=== PATIENT | female | born 1935 | race Caucasian/White ===

== ENCOUNTER → 2016-12-13 | Outpatient (CLI) | payer OTHER, MEDICARE ==
--- NOTE | 2016-12-13 14:53 | MA ---
Screening Digital Mammogram With Tomosynthesis and iCAD Indication: Routine screening. Technique: Standard digital CC projections were obtained. Digital breast tomosynthesis was performed in the MLO projection with reconstruction at 1.0-mm slice thickness. Composite MLO views were recons tructed. This examination was processed by the iCAD computer-aided detection system. Comparison: December 2015, December 2014, November 2013, August 2012, and August 2011. Breast density: Type B. Findings: CAD was reviewed. No suspicious microcalcifications, mass, or architectural distortion. Impression: Negative mammogram BI-RADS 1: Negative Recommendation: Routine screening is recommended in one year. [facility] will send a result letter to the patient. Negative mammography should not preclude additional workup of a clinically suspicious finding. The patient's information is entered into a reminder system with a target due date for her next mammo gram.
== END ==
LOC: FIMAGING 11:06
DX: Z12.31 Encounter for screening mammogram for malignant neoplasm of breast (principal)
CPT/HCPCS: G0202

== ENCOUNTER → 2017-01-04 | Outpatient (CLI) | payer OTHER, MEDICARE | LOC: BHFA 14:45 | PROVIDERS: ATTEND Internal Medicine | DX: I10 Essential (primary) hypertension (principal) ==

== ENCOUNTER → 2017-03-02 | Outpatient (CLI) | payer OTHER, MEDICARE | LOC: FIMAGING 11:56 | PROVIDERS: ATTEND Registered Nurse | DX: N93.9 Abnormal uterine and vaginal bleeding, unspecified (principal) ==

== ENCOUNTER → 2017-09-19 | Outpatient (CLI) | payer OTHER, MEDICARE ==
[~2017-09-19] MED LIST: DEPO METHYLPREDNISOLONE 40 MG/ML SDV ONE; IOPAMIDOL (ISOVUE 370) 100 ML BTL IV ONE; LIDOCAINE 1% 300 MG/30 ML SDV ONE; ROPIVACAINE HCL 150 MG/30 ML INJ ONE
== END ==
LOC: FIMAGING 10:13
PROVIDERS: ATTEND Physician Assistant
DX: M25.551 Pain in right hip (principal); M25.552 Pain in left hip
CPT/HCPCS: 20610; J1030; J2795; Q9967

== ENCOUNTER → 2017-11-03 | Outpatient (CLI) | payer OTHER, MEDICARE | LOC: FIMAGING 09:55 | PROVIDERS: ATTEND Physician Assistant | DX: M19.012 Primary osteoarthritis, left shoulder (principal); M75.82 Other shoulder lesions, left shoulder ==

== ENCOUNTER 2017-11-28 10:30 | Day surgery (SDC) | payer OTHER, MEDICARE ==
--- NOTE | 2017-11-27 15:34 | GHP ---
[f rep st] PREOP HISTORY AND PHYSICAL DATE OF ADMISSION: 11/28/2017 REASON FOR ADMISSION: Left shoulder impingement with partial thickness rotator cuff tear. PLANNED PROCEDURE: Left shoulder decompression and possible cuff repair. HISTORY OF PRESENT ILLNESS: The patient is an 81-year-old female with long-standing right shoulder p ain that has failed conservative management, including cortisone injections, physical therapy, activi ty modification. She had undergone a rotator cuff repair on the opposite side and has done well with that, and would like to proceed with a decompression, possible rotator cuff repair on this left shou lder. PAST MEDICAL HISTORY: Reflux, osteopenia, hypothyroidism, elevated cholesterol. PAST SURGICAL HISTORY: Appendectomy, tonsillectomy, bilateral knee arthroscopies, rotator cuff repai r on the right, cataract surgery. MEDICATIONS: Levothyroxine 75 mcg, lisinopril 10 mg, meloxicam 15 mg, pravastatin 40 mg, Prilosec, p robiotic, vitamin D. ALLERGIES: Codeine and hydrocodone, both create nauseousness in her. SOCIAL HISTORY: Former smoker. She does not drink alcohol. REVIEW OF SYSTEMS: No shortness of breath or chest pain. Otherwise, review of systems is unremarkab le. PHYSICAL EXAMINATION: VITAL SIGNS: She is 5 feet 7 inches tall, weighs 165 pounds. Blood pressure is 122/78, heart rate is 80. GENERAL: She is alert and oriented x3. HEENT: Normocephalic, atraumat ic. Extraocular muscles intact. NECK: Supple. There is no lymphadenopathy. No JVD. CHEST: Radha r to auscultation. CARDIOVASCULAR: Regular rate and rhythm. ABDOMEN: Soft, nontender, nondistende d. EXTREMITIES: Focused on the left shoulder, there is no supraspinatus or infraspinatus atrophy. There is a little prominence over the AC joint with mild tenderness there. Active range of motion of the left shoulder. She has full extension to 150 degrees of forward flexion, 60 degrees of internal /external rotation. Rotator cuff strength: Supraspinatus is 4-/5, infraspinatus 4/5, and subscapula ris 4+/5. She does have a positive impingement sign. Positive cross-body abduction sign. IMAGING: MRI is reviewed of the shoulder from October 2017, shows a partial tear of the supraspinat us tendon. She has some cartilage loss in the superior aspect of the humeral head and glenoid. Labr um is torn and degenerative, diminutive in size posteriorly. Humeral head is well centered in the gl enoid and she has [id number] AC joint arthrosis. ASSESSMENT: Left shoulder impingement with partial thickness rotator cuff tear. PLAN: A long discussion with the patient. She has failed conservative management including injectio ns, physical therapy. I think at this point the best course of action would be to proceed with a dec ompression, possible rotator cuff repair, depending on how torn the tendon is. She understands that. She has been through this on the other side and does understand if we repair the cuff she will be i n a sling and abduction pillow for 3 to 6 weeks. Risks and benefits of the surgery were discussed, including continued pain and need for additional rowley rgery, and we will plan on surgery next Tuesday at [facility]. /[id number]/MODL
[2017-11-28] MEDS ORDERED: BUPIVACAINE/EPI 0.5% 30 ML SDV ONE (10:37)
[2017-11-28] MEDS ORDERED: EPINEPHrine 30 MG/30 ML MDV (0.1 MG/0.1 ML) ONE (10:37)
[2017-11-28] MEDS ORDERED: LIDOCAINE 1% 2 ML INJ ONE (10:51)
[2017-11-28] MEDS ORDERED: LIDOCAINE 1% 2 ML INJ ID PRN (10:59)
[2017-11-28] MEDS ORDERED: LR 1,000 ML IV ONE (10:59)
[2017-11-28] MEDS ORDERED: ceFAZolin 2 GM/SWFI 2 GM/20 ML SYR IVP ONE (10:59)
--- NOTE | 2017-11-28 11:18 | POSTANESTH ---
Post Anesthetic Evaluation Cardiovascular Status: Normal, Stable Respiratory Status: Normal, Stable Level of Consciousness/Mental Status: Can Participate in Eval Pain Control: Adequate, Prn Tx Ordered Nausea/Vomiting Control: Adequate, Prn Tx Ordered Complications Possibly Related to Anesthesia: None Noted
--- NOTE | 2017-11-28 11:19 | PDANEPAE ---
ANE History of Present Illness left shoulder RTC tear ANE Past Medical History - Cardiovascular History Hx Hypertension: Yes Hx Arrhythmias: No Hx Chest Pain: No Hx Coronary Artery / Peripheral Vascular Disease: No Hx CHF / Valvular Disease: No Hx Palpitations: No Cardiovascular History Comment: pcp monitors bp meds. baseline echo done last year - Pulmonary History Hx COPD: No Hx Asthma/Reactive Airway Disease: No Hx Recent Upper Respiratory Infection: No Hx Oxygen in Use at Home: No Hx Sleep Apnea: No Sleep Apnea Screening Result - Last Documented: Negative - Neurologic History Hx Cerebrovascular Accident: No Hx Seizures: No Hx Dementia: No Neurologic History Comment: lumbar back pain with numbness and tingling to feet - Endocrine History Hx Diabetes: No Hypothyroid: Yes Hyperthyroid: No Obesity: no Endocrine History Comment: hypothyroidism - Renal History Hx Renal Disorders: No - Liver History Hx Hepatic Disorders: No - Neurological & Psychiatric Hx Hx Neurological and Psychiatric Disorders: No - Cancer History Hx Cancer: No - Congenital Disorder History Hx Congenital Disorders: No - GI History GERD: moderate Hx Gastrointestinal Disorders: Yes Gastrointestinal History Comment: reflux- on prilosec. occ constipation- diet controlled. hx of stomach ulcers - Other Health History Other Health History: wears glasses - Chronic Pain History Chronic Pain: Yes (left shoulder, lower back pain) - Surgical History Prior Surgeries: tonsillectomy 194. right ovary and appy 1960. hemorrhoidectomy 1988. rectocele in 1995. erica 1997. hysteroscopy 2000. 2008 knee scope- left. 2012 knee scope- right. 2013 right RTC repair. sep and oct 2014 bilateral cataracts ANE Review of Systems Review of systems is: negative Review of Systems: - Exercise capacity METS (RN): 4 METS ANE Patient History - Allergies Allergies/Adverse Reactions: codeine [Codeine] Allergy (Verified 11/18/17 12:51) nausea- needs antiemetic hydrocodone [Hydrocodone] Allergy (Verified 11/18/17 12:51) nausea- needs antiemetic - Home Medications Home medications: home medication list seen and reviewed Home Medications: Herbals/Supplements -Info Only 09/07/13 [Last Taken Unknown] Levothyroxine [Synthroid 75 mcg (RX)] 09/07/13 [Last Taken 11/28/17] Lisinopril [Zestril 5 mg (RX)] 09/07/13 [Last Taken 11/27/17] Omeprazole [Prilosec 20 mg] 09/07/13 [Last Taken 11/27/17] GABAPENTIN 11/18/17 [Last Taken 11/28/17] Latanoprost 11/18/17 [Last Taken 11/27/17] Mobic 15 mg 11/18/17 [Last Taken 11/28/17] Ondansetron Odt [Zofran Odt 4 mg (*)] 11/18/17 [Last Taken 11/28/16] Pravastatin Sodium 11/18/17 [Last Taken 11/27/17] Preservision Softgel 11/18/17 [Last Taken 11/27/17] Tylenol PM (*) 11/18/17 [Last Taken 11/28/17] - NPO status NPO Since - Liquids (Date): 11/28/17 NPO Since - Liquids (Time): 09:00 NPO Since - Solids (Date): 11/27/17 NPO Since - Solids (Time): 18:00 - Anes Hx Anes Hx: post operative nausea - Smoking Hx Smoking Status: Former smoker - Family Anes Hx Family Anes Hx: none Family Hx Anesthesia Complications: none ANE Labs/Vital Signs - Vital Signs Blood Pressure: 174/99 Heart Rate: 98 Respiratory Rate: 16 O2 Sat (%): 95 Height: 170.18 cm Weight: 72.575 kg ANE Physical Exam - Airway Neck exam: FROM Mallampati Score: Class 2 Mouth exam: small mouth opening (presence of tanja on palate - have previously bled with intubation) - Pulmonary Pulmonary: no respiratory distress - Cardiovascular Cardiovascular: regular rate and rhythym - ASA Status ASA Status: II ANE Anesthesia Plan Anesthesia Plan: general endotracheal anesthesia Regional Anesthesia: single shot NB, interscalene BP NB Specialized Airway: video laryngoscope Urgent/Emergent Case: Anamiladis maged completed preop but documented later for safe timely pt care
--- NOTE | 2017-11-28 11:24 | PDHPUP ---
History & Physical Update H&P update statement: This history and physical update is based on an assessment of the patient which was completed after admission or registration (within 24 hours), but prior to the surgery/procedure. H&P update: H&P reviewed & patient examined, no change in patient's condition since H&P completed
[2017-11-28] MEDS ORDERED: BUPIVACAINE 0.5% 30 ML SDV ONE (11:32)
[2017-11-28] MEDS ORDERED: PROPOFOL 200 MG/20 ML VIAL ONE (11:33)
[2017-11-28] MEDS ORDERED: fentaNYL 100 MCG/2 ML INJ ONE (11:33)
[2017-11-28] MEDS ORDERED: LIDOCAINE 2% 5 ML SDV ONE (11:36)
[2017-11-28] MEDS ORDERED: MIDAZOLAM 2 MG/2 ML VIAL ONE (11:42)
[2017-11-28] MEDS ORDERED: THROMBIN (BOVINE) 5,000 UNIT VIAL TP ONE (12:09)
[2017-11-28] MEDS ORDERED: CALCIUM CHLORIDE 1 GM/10 ML INJ ONE (12:09)
[2017-11-28] MEDS ORDERED: DEXAMETHASONE 4 MG/ML VIAL ONE (12:19)
[2017-11-28] MEDS ORDERED: HYDROmorphONE/DILAUDID 1 MG/ML INJ IVP PRN (12:54)
[2017-11-28] MEDS ORDERED: PHENYLEPHRINE HCL 100 MCG/ML SYR IVP PRN (12:54)
[2017-11-28] MEDS ORDERED: ALBUTEROL 3 ML DEYVIAL IH PRN (12:54)
[2017-11-28] MEDS ORDERED: NALOXONE HCL 0.4 MG/ML INJ IVP PRN (12:54)
[2017-11-28] MEDS ORDERED: ONDANSETRON 4 MG/2 ML VIAL IVP PRN (12:54)
[2017-11-28] MEDS ORDERED: fentaNYL 100 MCG/2 ML INJ IVP PRN (12:54)
[2017-11-28] MEDS ORDERED: HYDROCODONE/APAP 5/325 TAB PO PRN (12:54)
[2017-11-28] MEDS ORDERED: ACETAMINOPHEN 500 MG TAB PO PRN (12:54)
[2017-11-28] MEDS ORDERED: PROMETHAZINE HCL 25 MG/ML INJ IVP PRN (12:54)
[2017-11-28] MEDS ORDERED: OXYCODONE/APAP 5/325 TAB PO PRN (12:54)
[2017-11-28] MEDS ORDERED: LR 500 ML IV PRN (12:54)
[2017-11-28] MEDS ORDERED: ONDANSETRON 4 MG/2 ML VIAL ONE (13:04)
--- NOTE | 2017-11-28 13:34 | POSTOPPROG ---
Post Op Note Date of Operation: 11/28/17 Surgeon: Guanako Ivy Practical Nurse: pSencer Terrell Anesthesia: GET(General Endotracheal) Pre-op Diagnosis: Left RC tear Post-op Diagnosis: same Indication: RC tear Procedure: 1. RC repair 2. labral repair 3. SAD Findings: full thickness RC tear Inf/Abcess present in the surg proc area at time of surgery?: No Complications: none
[2017-11-28 13:54] VITALS: O2SAT 95
[2017-11-28 13:58] VITALS: TEMP 97.3
[2017-11-28 14:00] VITALS: BP 159/77; PULSE 84; RESP 18
--- NOTE | 2017-11-28 14:07 | GOP ---
[f rep st] OPERATIVE REPORT DATE OF OPERATION: 11/28/2017 SURGEON: Guanako Ivy MD REJECT OPENER: Andrew Terrell MOTHERCRAFT NURSE, [facility] ANESTHESIA: Interscalene block with general. PREOPERATIVE DIAGNOSIS: Left shoulder impingement, possible rotator cuff tear. POSTOPERATIVE DIAGNOSIS: Rotator cuff tear left shoulder. PROCEDURE PERFORMED: 1. Arthroscopic rotator cuff repair. 2. Labral debridement. 3. Subacromial decompression. 4. PRP injection FINDINGS: ESTIMATED BLOOD LOSS: Minimal. INDICATIONS: Lucinda is an 81-year-old female with slowly worsening left shoulder pain that has failed conservative management. MRI was obtained which showed a near full-thickness tear of the supraspinatus tendon and impingement anatomy. Decision was made to proceed with a rotator cuff repair and decompression. DESCRIPTION OF PROCEDURE: After appropriate informed consent was obtained, the patient was taken to the operating, placed supine on the table. Time-out was performed. Patient was identified. Correct site was identified. She received 2 g Ancef preoperatively. An interscalene block was placed in the operating room, followed by general endotracheal tube anesthesia. She was then positioned in a beach chair position with all bony prominences well padded. Left upper extremity was prepped and draped in the usual sterile fashion. I instilled 30 mL of 1% lidocaine with epinephrine and 30 mL of normal saline through a standard posterior portal. I made a small jay incision and introduced the camera through a standard posterior portal. I then obtained a standard anterior portal under direct visualization and placed a 4.5 mm plastic working cannula through there. She had some grade 2 and 3 changes with chondral thinning both in the anterior and superior aspect of the glenoid, degenerative labral tearing and fraying. Using motorized shaver, I gently performed a glenohumeral chondroplasty and debrided the labrum. Undersurface of the rotator cuff showed a full-thickness supraspinatus tear. I repositioned the camera in the subacromial space, obtained a standard lateral portal under direct visualization, placed an 8 mm working cannula through there and then repositioned the anterior cannula into the subacromial space as well to shuttle sutures. She had a type 2 acromion. I gently performed a subacromial decompression using a motorized shaver, bur and electrocautery device. We then passed 2 fiber tape sutures in a horizontal mattress configuration using a scorpion suture passing device. These were brought out the anterior portal and then crisscrossed and brought back out laterally. A single lateral row was placed after I punched the sdv pilot/navigator/dds operator hole. Two anchors were placed, pulling the rotator cuff securely back over to the footprint of the bone that I had roughened up with the motorized bur before sewing the cuff back down. Suture ends were trimmed.I injected 10 ml of PRP at the repair site. Looking at the distal end of the clavicle, she has some mild changes there. I did not do a distal clavicle excision. Instruments were then withdrawn. Portal incisions were closed with 2-0 Vicryl and 3-0 Monocryl stitches. Steri-Strips were applied. The patient was awakened from anesthesia, taken to the recovery in satisfactory condition. There were no immediate intraoperative complications. Spencer Terrell's assistance was required throughout the entire case. COMPLICATIONS: None. IMPLANTS USED: Arthrex 4.5 mm SwiveLock anchors x2. /[id number]/MODL MTDD
== END 2017-11-28 14:37 | disposition home or self-care (01) ==
LOC: FSGY 10:30
PROVIDERS: ATTEND Orthopaedic Surgery
PROC: 0MN24ZZ Release Left Shoulder Bursa and Ligament, Percutaneous Endoscopic Approach (ICD-10-PCS; principal; 2017-11-28 12:00)
PROC: 0LQ24ZZ Repair Left Shoulder Tendon, Percutaneous Endoscopic Approach (ICD-10-PCS; principal; 2017-11-28 12:00)
DX: M25.812 Other specified joint disorders, left shoulder (principal); M24.812 Other specific joint derangements of left shoulder, not elsewhere classified; I10 Essential (primary) hypertension; E03.9 Hypothyroidism, unspecified; Z87.891 Personal history of nicotine dependence
CPT/HCPCS: C1713; J0171; J0690; J1100; J2250; J2405; J2704; J3010

== ENCOUNTER 2018-01-07 14:17 | Emergency (ER) | payer OTHER, MEDICARE ==
--- NOTE | 2018-01-07 15:33 | CPEKG ---
Heart Rate: 93 RR Interval: 645 P-R Interval: 164 QRSD Interval: 72 QT Interval: 344 QTC Interval: 428 P Weld: 68 QRS Weld: -32 T Wave Weld: 62 EKG Severity - BORDERLINE ECG - EKG Impression: SINUS RHYTHM EKG Impression: LEFT AXIS DEVIATION EKG Impression: LOW VOLTAGE IN FRONTAL LEADS EKG Impression: BORDERLINE T ABNORMALITIES, ANT-LAT LEADS Electronically Signed By: Shelby Velazquez 07-Jan-2018 21:01:01
--- NOTE | 2018-01-07 15:55 | EDPHY ---
H & P Stated Complaint: htn Time Seen by Provider: 01/07/18 15:14 HPI/ROS: CHIEF COMPLAINT: High blood pressure HISTORY OF PRESENT ILLNESS: This is an 82-year-old female who presents with high blood pressure. She takes lisinopril 10 mg daily and took today's dose this morning. When she checked her blood pressure earlier in the day it was 180 /110, yesterday her measured blood pressure was 122/79. She believes that her blood pressure is usually in good control. She notes that she began taking a generic Lucero about 5 days ago for runny nose and itchy eyes. She wonders if this could be the culprit. While driving this morning she had a sense of general malaise and thought "I think you need to go home". She is unable to be more specific about how she felt at the time. In addition to hypertension she is aware of increased fatigue over the last week or so. She has had some mild nausea but no vomiting. She denies chest pain or shortness of breath. No lower extremity edema. She has not been ill with fever, cough, abdominal pain, dysuria, diarrhea or constipation. No blood in her stools. She has been eating and drinking normally. REVIEW OF SYSTEMS: A ten point review of systems was performed and is negative with the exception of the items mentioned in the HPI. Past medical history: 1. Hypertension 2. Glaucoma 3. Hypothyroidism 4. Hyperlipidemia 5. Remote history of polio Past surgical history: 1. Appendectomy 2. Right oophorectomy 3. Rotator cuff surgery Social history: She lives independently. She continues to drive and take care of her affairs. She does not use tobacco products. General Appearance: Alert. Vital signs reviewed. Blood sugar 2 20/121 at triage, 188/112 at the time of my evaluation. Heart rate 110 at triage. Eyes: Pupils equal and round, no conjunctival injection, no discharge. Anicteric. ENT, Mouth: Mucous membranes are moist, no oropharyngeal erythema or edema. Neck: No JVD. Respiratory: Lungs are clear to auscultation; no wheezes, rales, or rhonchi. Cardiovascular: Regular rate and rhythm; no murmur, rub, or gallop. Gastrointestinal: Abdomen is soft and nontender, no masses or organomegaly, bowel sounds normal. Skin: Warm and dry, no rashes on exposed skin, normal color. Back: Nontender to palpation over the thoracolumbar spine. No CVAT. Extremities: No lower extremity edema, no calf tenderness or swelling. Neurological: Alert and oriented. Moving all four extremities easily and equally. Cranial nerves II through XII are examined and are intact (visual acuity not tested). Strength is 5 over 5 bilaterally with testing of all major motor groups. Sensation is intact to light touch over all 4 extremities.Psychiatric: Normal affect. - Personal History Current Tetanus/Diphtheria Vaccine: Yes Current Tetanus Diphtheria and Acellular Pertussis (TDAP): Yes - Medical/Surgical History Hx Asthma: No Hx Chronic Respiratory Disease: No Hx Diabetes: No Hx Cardiac Disease: No Hx Renal Disease: No Hx Cirrhosis: No Hx Alcoholism: No Hx HIV/AIDS: No Hx Splenectomy or Spleen Trauma: No Other PMH: rt ovary removed appendix removed, orhto knee DIANA, DIANA shoulder surgery - Social History Smoking Status: Former smoker Constitutional: Initial Vital Signs Temperature (C) 36.7 C 01/07/18 14:23 Heart Rate 110 H 01/07/18 14:23 Respiratory Rate 16 01/07/18 14:23 Blood Pressure 220/121 H 01/07/18 14:23 O2 Sat (%) 96 01/07/18 14:23 O2 Delivery Mode Room Air Allergies/Adverse Reactions: codeine [Codeine] Allergy (Verified 01/07/18 14:22) nausea- needs antiemetic hydrocodone [Hydrocodone] Allergy (Verified 01/07/18 14:22) nausea- needs antiemetic Home Medications: Medication Instructions Recorded Levothyroxine [Synthroid 75 mcg 09/07/13 (*)] Lisinopril [Zestril 5 mg (*)] 09/07/13 Omeprazole [Prilosec 20 mg] 09/07/13 GABAPENTIN 11/18/17 Latanoprost 11/18/17 Mobic 15 mg 11/18/17 Pravastatin Sodium 11/18/17 Preservision Softgel 11/18/17 Tylenol PM (*) 11/18/17 Acetaminophen [Tylenol ES 500 mg 500 mg PO Q6HRS PRN tab 11/28/17 (*)] Medical Decision Making ED Course/Re-evaluation: 82-year-old female with hypertensive urgency. She is asymptomatic. She is given lisinopril 10 mg--the medication that she typically takes, successfully, to treat her hypertension. CBC, chemistries, troponin, EKG, and UA were evaluated. I do not find evidence of end-organ damage. She is not experiencing chest pain and I do not suspect ACS. No proteinuria. Renal function is normal. No evidence of heart failure on examination. Blood pressure 162/108 at discharge. She continued to be asymptomatic throughout her stay in the emergency department. She will measure her blood pressure twice daily. She will take an extra lisinopril tomorrow morning if her blood pressure is elevated. She plans to follow up with her primary care physician on Tuesday, day after tomorrow. Danger signs were reviewed with her. - Data Points Laboratory Results: Laboratory Results 01/07/18 16:55 01/07/18 16:55 Medications Given: Discontinued Medications Lisinopril (Zestril) 10 mg PO EDNOW ONE Stop: 01/07/18 17:11 Last Admin: 01/07/18 17:38 Dose: 10 mg Departure - Departure Disposition: Home, Routine, Self-Care Clinical Impression: Hypertensive urgency Condition: Good Instructions: Hypertension (ED) Additional Instructions: Take it easy tonight. Check your blood pressure tomorrow morning and if it is still high take double you're dose of lisinopril--20 mg instead of 10 mg. Check your blood pressure once in the morning and once in the evening. If you have headache, chest pain, shortness of breath, any new or concerning symptoms you should return for another evaluation. Stop taking the Lucero. I do not know if it has affected your blood pressure or not. Follow up with Dr. Green or someone in her office early this coming week. Let them know that you are in the emergency department with elevated blood pressure. Referrals: Adri Green MD [Primary Care Provider] - As per Instructions
[2018-01-07 16:58] VITALS: TEMP 97.5
[2018-01-07 17:06] LABS: PLATELET COUNT 233 10^3/uL (150-400)
[2018-01-07] MEDS ORDERED: LISINOPRIL 20 MG TAB PO ONE (17:10)
[2018-01-07 18:44] VITALS: BP 162/108; PULSE 100; RESP 16; O2SAT 98
== END 2018-01-07 18:44 | disposition home or self-care (01) ==
DX: I16.0 Hypertensive urgency (principal); Z87.891 Personal history of nicotine dependence

== ENCOUNTER 2018-01-24 08:44 | Outpatient (CLI) | payer OTHER, MEDICARE ==
[2018-01-24] MEDS ORDERED: NALOXONE HCL 0.4 MG/ML INJ IVP PRN (12:31)
[2018-01-24] MEDS ORDERED: FLUMAZENIL 0.5 MG/5 ML MDV IVP PRN (12:31)
[2018-01-24] MEDS ORDERED: MEPERIDINE 25 MG/ML SYR IVP PRN (12:31)
[2018-01-24] MEDS ORDERED: MIDAZOLAM 2 MG/2 ML VIAL IVP PRN (12:31)
[2018-01-24] MEDS ORDERED: fentaNYL 100 MCG/2 ML INJ IVP PRN (12:31)
[2018-01-24] MEDS ORDERED: NS 1,000 ML IV SCH (12:45)
--- NOTE | 2018-01-24 13:44 | PDGENHP ---
History & Physical Chief Complaint: RT HIP PAIN WITH GROIN PAIN History of Present Illness: HAD INJECTION BEFORE, 3-4 YRS AGO, FOR SIMILAR PAIN , WITH SOME RELIEF. NOW RECURRENT PAIN. RADIATES TO OVER THE KNEE. NO LT LEG PAIN, NO BACK PAIN. Pertinent Past, Social, Family History: TONSILLECTMY 1945; RT OVARY AND APPY 1960, HEMORRHOIDECTOMY, RECTOCELE, HYSTEROSCOPY, KNEE SCOPE, RTC. Relevant Physical Exam: SOME TINGLING DOWN LT LEG. Cardiorespiratory Assessment: RRR, CTA
--- NOTE | 2018-01-24 13:45 | PDPROPOC ---
Sedation Plan of Care Sedation Plan of Care: vital signs stable, mental status noted, patient educated of risks, benefits, alternatives, patient can tolerate sedation ASA Classification: ASA 2 Planned drugs: fentanyl, midazolam Mallampati Score: Class 3 Mallampati Reference Image: Patient passed 3-3-2 rule?: Yes
[2018-01-24 13:54] VITALS: PULSE 82; RESP 16
[2018-01-24] MEDS ORDERED: ONDANSETRON 4 MG/2 ML VIAL ONE (14:29)
[2018-01-24] MEDS ORDERED: MIDAZOLAM 2 MG/2 ML VIAL ONE (14:29)
[2018-01-24] MEDS ORDERED: fentaNYL 100 MCG/2 ML INJ ONE (14:29)
[2018-01-24] MEDS ORDERED: ONDANSETRON 4 MG/2 ML VIAL IVP PRN (15:47)
[2018-01-24 16:04] VITALS: TEMP 97.3
[2018-01-24 16:05] VITALS: BP 118/73; O2SAT 95
== END 2018-01-24 16:03 | disposition home or self-care (01) ==
LOC: FIMAGING 08:44
PROVIDERS: ATTEND Family Medicine
PROC: 3E0S3BZ Introduction of Anesthetic Agent into Epidural Space, Percutaneous Approach (ICD-10-PCS; principal; 2018-01-24 14:53)
PROC: 3E0S33Z Introduction of Anti-inflammatory into Epidural Space, Percutaneous Approach (ICD-10-PCS; principal; 2018-01-24 14:53)
DX: M25.551 Pain in right hip (principal)
CPT/HCPCS: 62323; 72148; 99152; J2250; J2405; J3010

== ENCOUNTER 2018-02-28 13:02 | Day surgery (SDC) | payer OTHER, MEDICARE ==
[2018-02-28] MEDS ORDERED: DEXAMETHASONE 10 MG/ML VIAL ONE (13:25)
[2018-02-28] MEDS ORDERED: IOPAMIDOL (ISOVUE-M 300) 15 ML VIAL ONE (13:25)
== END 2018-02-28 16:15 | disposition home or self-care (01) ==
LOC: FIMAGING 13:02
PROVIDERS: ATTEND Physician Assistant
PROC: 3E0S3BZ Introduction of Anesthetic Agent into Epidural Space, Percutaneous Approach (ICD-10-PCS; principal; 2018-02-28)
PROC: 3E0S33Z Introduction of Anti-inflammatory into Epidural Space, Percutaneous Approach (ICD-10-PCS; principal; 2018-02-28)
DX: M48.061 Spinal stenosis, lumbar region without neurogenic claudication (principal); M54.16 Radiculopathy, lumbar region
CPT/HCPCS: J1100; Q9967

== ENCOUNTER 2018-04-13 10:32 | Inpatient (IN) | payer OTHER, MEDICARE ==
[2018-04-13] MEDS ORDERED: PROPOFOL/EMULSION 500 MG/50 ML BOTTLE IV ONE (10:44)
[2018-04-13] MEDS ORDERED: LIDOCAINE 2% 5 ML SDV ONE (10:44)
[2018-04-13] MEDS ORDERED: ROCURONIUM 50 MG/5 ML VIAL ONE (10:44)
[2018-04-13] MEDS ORDERED: ACETAMINOPHEN 500 MG TAB PO ONE (11:04)
[2018-04-13] MEDS ORDERED: ceFAZolin 2 GM/DEXTROSE 100 ML IV ONE (11:04)
[2018-04-13] MEDS ORDERED: morphINE PF 0.2 MG in SYRINGE INTRATHECAL 1 SYR IT ONE (11:04)
[2018-04-13] MEDS ORDERED: GABAPENTIN 300 MG CAP PO ONE (11:04)
[2018-04-13] MEDS ORDERED: morphINE SR 15 MG TAB PO ONE (11:04)
[2018-04-13] MEDS ORDERED: THROMBIN (BOVINE) 20,000 UNIT VIAL TP ONE (11:08)
[2018-04-13] MEDS ORDERED: EPINEPHrine 1 MG/ML INJ ONE (11:09)
[2018-04-13] MEDS ORDERED: BUPIVACAINE 0.25% 30 ML SDV ONE (11:09)
[2018-04-13] MEDS ORDERED: CHLORHEXIDINE GLUC HIBICLENS 118 ML BTL TP ONE (11:09)
[2018-04-13] MEDS ORDERED: BACITRACIN 50,000 UNITS/10 ML SYR IRR ONE (11:10)
[2018-04-13] MEDS ORDERED: LR 1,000 ML IV ONE (11:30)
--- NOTE | 2018-04-13 11:49 | PDHPUP ---
History & Physical Update H&P update statement: This history and physical update is based on an assessment of the patient which was completed after admission or registration (within 24 hours), but prior to the surgery/procedure. H&P update: H&P reviewed & patient examined, no change in patient's condition since H&P completed (Consents signed and site marked. All questions answered.)
[2018-04-13] MEDS ORDERED: fentaNYL 100 MCG/2 ML INJ ONE ×3 (11:58→15:58)
[2018-04-13] MEDS ORDERED: DEXAMETHASONE 4 MG/ML VIAL ONE (12:46)
[2018-04-13] MEDS ORDERED: PHENYLEPHRINE HCL 100 MCG/ML SYR ONE (13:09)
[2018-04-13] MEDS ORDERED: PHENYLEPHRINE 10 MG/ML SDV ONE (13:49)
[2018-04-13] MEDS ORDERED: ONDANSETRON 4 MG/2 ML VIAL ONE (13:49)
--- NOTE | 2018-04-13 13:58 | PDANEPAE ---
ANE History of Present Illness lumbar stenosis for TLIF ANE Past Medical History - Cardiovascular History Hx Hypertension: Yes Hx Arrhythmias: No Hx Chest Pain: No Hx Coronary Artery / Peripheral Vascular Disease: No Hx CHF / Valvular Disease: No Hx Palpitations: No Cardiovascular History Comment: pcp monitors bp meds. baseline echo done last year 2016 - Pulmonary History Hx COPD: No Hx Asthma/Reactive Airway Disease: No Hx Recent Upper Respiratory Infection: No Hx Oxygen in Use at Home: No Hx Sleep Apnea: No Sleep Apnea Screening Result - Last Documented: Positive - Neurologic History Hx Cerebrovascular Accident: No Hx Seizures: No Hx Dementia: No Neurologic History Comment: lumbar back pain with numbness and tingling to feet - Endocrine History Hx Diabetes: No Obesity: no Endocrine History Comment: hypothyroidism - Renal History Hx Renal Disorders: No - Liver History Hx Hepatic Disorders: No - Neurological & Psychiatric Hx Hx Neurological and Psychiatric Disorders: No - Cancer History Hx Cancer: No - Congenital Disorder History Hx Congenital Disorders: No - GI History Hx Gastrointestinal Disorders: Yes Gastrointestinal History Comment: reflux- on prilosec. occ constipation- diet controlled. hx of stomach ulcers - Other Health History Other Health History: wears glasses - Chronic Pain History Chronic Pain: Yes (left shoulder, lower back pain) - Surgical History Prior Surgeries: tonsillectomy 1945. right ovary and appy 1960. hemorrhoidectomy 1988. rectocele in 1995. erica 1997. hysteroscopy 2000. 2008 knee scope- left. 2011 knee scope- right. 2013 right RTC repair. sep and oct 2014 bilateral cataracts. L rotator Cuff Nov 2017 ANE Review of Systems Review of Systems: - Exercise capacity METS (RN): 4 METS ANE Patient History - Allergies Allergies/Adverse Reactions: codeine [Codeine] Allergy (Verified 02/20/18 15:26) nausea- needs antiemetic hydrocodone [Hydrocodone] Allergy (Verified 02/20/18 15:26) nausea- needs antiemetic lactose Allergy (Verified 02/20/18 15:26) Vomiting - Home Medications Home medications: home medication list seen and reviewed Home Medications: Levothyroxine [Synthroid 75 mcg (*)] 75 mcg PO DAILY@03 09/07/13 [Last Taken 03/24] C/E/Zn/Cu/OM3/DHA/EPA/LUT/ZEAX [Preservision Areds 2 Softgel] 1 each PO BID #0 11/18/17 [Last Taken 1 Week Ago ~04/06/18] Gabapentin [Neurontin 300 MG (*)] 300 mg PO TID #0 11/18/17 [Last Taken 04/11/18 ] Latanoprost 0.005% [Xalatan 0.005% (*)] 1 drops EACHEYE HS #0 11/18/17 [Last Taken 04/11/18] Pravastatin Sodium 40 mg PO HS #0 11/18/17 [Last Taken 04/11/18] Calcium Carbonate [Oyster Shell Calcium 500 mg (*)] 500 mg PO DAILY #0 01/23/18 [Last Taken 1 Week Ago ~04/06/18] Cholecalciferol Vit D3 [Vitamin D3 (*)] 1,000 units PO DAILY #0 01/23/18 [Last Taken 1 Week Ago ~04/06/18] Lisinopril [Zestril 10 mg (*)] 10 mg PO DAILY 02/20/18 [Last Taken 04/11/18] Aspirin [Aspirin 81mg (*)] 81 mg PO DAILY 03/24/18 [Last Taken 04/11/18] Omeprazole 20 mg PO DAILY PRN 03/30/18 [Last Taken 1 Week Ago ~04/06/18] amLODIPine BESYLATE [Norvasc 5 mg (*)] 5 mg PO DAILY 03/30/18 [Last Taken ] - NPO status NPO Since - Liquids (Date): 04/13/18 NPO Since - Liquids (Time): 09:00 NPO Since - Solids (Date): 04/12/18 NPO Since - Solids (Time): 21:00 - Smoking Hx Smoking Status: Former smoker - Family Anes Hx Family Hx Anesthesia Complications: Nausea ANE Labs/Vital Signs - Vital Signs Blood Pressure: 179/97 Heart Rate: 102 Respiratory Rate: 18 O2 Sat (%): 96 Height: 170.18 cm Weight: 72.575 kg ANE Physical Exam - Airway Neck exam: FROM Mallampati Score: Class 2 Mouth exam: normal dental/mouth exam (tanja on upper and lower palate present) - Pulmonary Pulmonary: no respiratory distress - Cardiovascular Cardiovascular: regular rate and rhythym - ASA Status ASA Status: II ANE Anesthesia Plan Anesthesia Plan: general endotracheal anesthesia Lines/Monitors: additional IV Urgent/Emergent Case: Yola lynne completed preop but documented later for safe timely pt care
[2018-04-13] MEDS ORDERED: PROPOFOL 200 MG/20 ML VIAL ONE (14:17)
--- NOTE | 2018-04-13 14:36 | POSTANESTH ---
Post Anesthetic Evaluation Cardiovascular Status: Normal, Stable Respiratory Status: Normal, Stable Level of Consciousness/Mental Status: Can Participate in Eval, Mildly Sleepy, Arousable Pain Control: Adequate, Prn Tx Ordered Nausea/Vomiting Control: Adequate, Prn Tx Ordered Complications Possibly Related to Anesthesia: None Noted
[2018-04-13] MEDS ORDERED: PHENYLEPHRINE HCL 100 MCG/ML SYR IVP PRN (14:50)
[2018-04-13] MEDS ORDERED: ALBUTEROL 3 ML DEYVIAL IH PRN (14:50)
[2018-04-13] MEDS ORDERED: HYDROCODONE/APAP 5/325 TAB PO PRN (14:50)
[2018-04-13] MEDS ORDERED: PROMETHAZINE HCL 25 MG/ML INJ IVP PRN (14:50)
[2018-04-13] MEDS ORDERED: DIAZEPAM 5 MG/ML 1 ML SYR IVP PRN (14:50)
[2018-04-13] MEDS ORDERED: ONDANSETRON 4 MG/2 ML VIAL IVP PRN (14:50)
[2018-04-13] MEDS ORDERED: ACETAMINOPHEN 500 MG TAB PO PRN (14:50)
[2018-04-13] MEDS ORDERED: LABETALOL HCL 5 MG/ML 20 ML MDV IVP PRN (14:50)
[2018-04-13] MEDS ORDERED: LR 500 ML IV PRN (14:50)
[2018-04-13] MEDS ORDERED: oxyCODONE IR 5 MG TAB PO PRN (14:50)
[2018-04-13] MEDS ORDERED: NALOXONE HCL 0.4 MG/ML INJ IVP PRN (14:50)
[2018-04-13] MEDS ORDERED: HYDROmorphONE/DILAUDID 1 MG/ML INJ IVP PRN (14:50)
[2018-04-13] MEDS ORDERED: LABETALOL HCL 5 MG/ML 20 ML MDV ONE (15:18)
[2018-04-13] MEDS ORDERED: MAGNESIUM HYDROXIDE 30 ML UDCUP PO PRN (15:38)
[2018-04-13] MEDS ORDERED: LACTULOSE 20 GM/30 ML UDCUP PO PRN (15:38)
[2018-04-13] MEDS ORDERED: POLYETHYLENE GLYCOL 3350 17 GM PKT PO PRN (15:38)
[2018-04-13] MEDS ORDERED: diphenhydrAMINE 25 MG CAP PO PRN (15:38)
[2018-04-13] MEDS ORDERED: BISACODYL 10 MG SUPP PR PRN (15:38)
--- NOTE | 2018-04-13 15:57 | POSTOPPROG ---
Post Op Note Date of Operation: 04/13/18 Surgeon: Boom Epps Can Sealer: Chaya Fragoso MPAS, PAC Anesthesia: GET(General Endotracheal) Pre-op Diagnosis: lumbar stenosis Post-op Diagnosis: lumbar stenosis Indication: lumbar stenosis Procedure: L4-L5 right TLIF and laminectomy; L4-L5 PSF Inf/Abcess present in the surg proc area at time of surgery?: No EBL: Minimal Drains: Francis VILLAGRAN Addendum - Addendum .: S:low back pain O: NAD A&Ox3 MAEx4 5/5 and equal in BUE and BLE. Incision c/d/i. TITUS drain serosanginous A/P L4-L5 right TLIF and laminectomy; L4-L5 PSF -Advance diet as tolerated -PT/OT -Optimize pain management -JPx1 -Post op xrays pending -DVT prophx: TEDs, SCDs, Lovenox POD1 -Please notify NS with any change in neuro/motor exam
[2018-04-13] MEDS: fentaNYL 100 MCG/2 ML INJ IVP PRN ×2 (16:00→16:07)
[2018-04-13] MEDS: ONDANSETRON 4 MG/2 ML VIAL IVP PRN (16:56)
[2018-04-13] MEDS: NS 1,000 ML IV SCH (16:59)
--- NOTE | 2018-04-13 17:02 | GOP ---
[f rep st] OPERATIVE REPORT DATE OF OPERATION: 04/13/2018 SURGEON: Boom Epps MD TERMITE EXTERMINATOR HELPER: Chaya Frgaoso PA-C. ANESTHESIA: General. PREOPERATIVE DIAGNOSIS: 1. L4-L5 grade 1 spondylolisthesis with severe spinal stenosis. 2. Low back pain with lower extremity radiculopathy. 3. Treatment refractory to nonoperative intervention. POSTOPERATIVE DIAGNOSIS: 1. L4-L5 grade 1 spondylolisthesis with severe spinal stenosis. 2. Low back pain with lower extremity radiculopathy. 3. Treatment refractory to nonoperative intervention. PROCEDURES PERFORMED: 1. Posterior arthrodesis with approach to L4-L5. 2. Posterolateral fusion with bilateral pedicle screw placement at L4 and L5 from the Couple 4.75 System. 3. Decompressive laminectomy with bilateral medial facetectomies and left- sided L4-5 foraminotomy. 4. Right-sided L4-L5 transforaminal lumbar interbody fusion with an 8 x 23 mm titanium PEEK elevate cage filled with morselized autograft and allograft. 5. Posterolateral fusion on the left between L4-L5 with morselized autograft and allograft. 6. Use of intraoperative 3D Stealth Navigation. 7. Use of intraoperative fluoroscopy, less than 1-hour physician time. 8. Use of neuro monitoring. 9. Use of the operating microscope. 10. Injection of preservative-free intrathecal narcotics. COMPLICATIONS: None. FINDINGS: per imaging ESTIMATED BLOOD LOSS: 150 mL. INDICATIONS: The patient is an 82-year-old woman who presented with low back pain and lower extremity radiculopathy and claudication. She had evidence of severe spinal stenosis at L4-L5 with severe spinal stenosis. The patient failed nonoperative management. After discussion of risks, benefits, and alternatives, she decided to proceed forth with surgery as described above. DESCRIPTION OF PROCEDURE: The patient was brought to the operating theater and underwent general endotracheal anesthesia without complications. Venodynes, OMER hose and the appropriate lines were placed by Anesthesia. She was flipped prone onto the Francis table. All bony processes inspected and padded. The lower lumbar region was prepped and draped in the usual sterile surgical fashion. A time-out was completed per protocol. The patient received antibiotics within 1-hour of incision. Using lateral fluoroscopy and a spinal needle, we picked our entry point at the L4-L5 level. This was marked in the midline. The incision was infiltrated with Marcaine with epinephrine. The incision was taken down with the scalpel blade and using monopolar, taken down the midline through the lumbodorsal fascia. A subperiosteal dissection was carried to the transverse processes of L4 and L5 bilaterally. Deep retractors were placed to maintain our exposure. We confirmed our level using lateral fluoroscopy. We attached the 3D Stealth Navigation clamp to the spinous process of L4 and completed a 3D Stealth Navigation spin. Using 3D Stealth Navigation, we placed the tugboat pilot holes for the bilateral pedicle screws at L4 and L5. All holes were manually palpated with no evidence of cortical breaches. We then tapped and placed 6.5 x 45 mm screws on the left side at L4 and L5 and a 6.5 x 50 mm screw on the right at L4 and L5 from the FarmLink[employer] 4.75 System. Another 3D Stealth Navigation spin demonstrated good placement of the hardware. At this point, the microscope was brought into the field to assist with microscopic dissection and to maintain illumination and magnification. Using a combination of the bur tip on the drill bit, Kerrison punches, and Leksell rongeur, we completed a decompressive laminectomy with bilateral medial facetectomies at L4-L5 with a left-sided L4-5 foraminotomy. We distracted the disc space and completed an aggressive facetectomy on the right side L4-5. We completed a right-sided L4-5 diskectomy and prepared the cartilaginous endplates and measured the interbody space. We placed an 8 x 23 mm titanium PEEK elevate cage filled with morselized autograft and allograft anteriorly and toward the midline. We packed additional morcellized autograft into the disk space for the interbody fusion. We let down the distraction and decorticated the bone on the left side between L4-5 for the posterolateral fusion. The wound was irrigated copiously with bacitracin irrigation. We placed morselized autograft and allograft on the left side between L4-5 for the posterolateral fusion. Two lordotic rods were placed in the heads of screws between L4 and L5 and secured down with cap screws which were tightened per the commercial artist's setting. We injected preservative-free intrathecal narcotics. A drain was left in subfascial space. The wound was irrigated copiously with bacitracin irrigation and closed with multiple layers of Vicryl sutures in the deep layers and Dermabond for skin. The patient's wounds were dressed sterilely. She was flipped supine onto the transport bed, awakened, extubated, and taken to the recovery room in stable condition. There were no complications. No noted changes on neuromonitoring throughout the procedure. /[id number]/MODL MTDD
[2018-04-13] MEDS: GABAPENTIN 300 MG CAP PO SCH ×2 (17:12→22:07)
[2018-04-13] MEDS: METHOCARBAMOL 750 MG TAB PO PRN (17:35)
--- NOTE | 2018-04-13 19:54 | PDMN ---
Medical Necessity Medical necessity: [facility] IP only surgery; L4/5 Laminectomy & TLIF; L4/5 PSF ( cpt 73970)
[2018-04-13] MEDS: ceFAZolin 2 GM/DEXTROSE 100 ML IV SCH (20:18)
[2018-04-13] MEDS: FAMOTIDINE 20 MG TAB PO SCH (20:32)
[2018-04-13] MEDS: SENNOSIDES/DOCUSATE SODIUM TAB PO SCH (20:32)
[2018-04-13] MEDS: PRAVASTATIN SODIUM 40 MG TAB PO SCH (20:32)
[2018-04-13] MEDS: ACETAMINOPHEN 500 MG TAB PO SCH (22:07)
[2018-04-13] MEDS: LATANOPROST 0.005% 2.5 ML OPHT DROPS EACHEYE SCH (22:17)
[2018-04-14] MEDS: LEVOTHYROXINE 75 MCG TAB PO SCH (03:33)
[2018-04-14] MEDS: ceFAZolin 2 GM/DEXTROSE 100 ML IV SCH (03:33)
[2018-04-14] MEDS: ACETAMINOPHEN 500 MG TAB PO SCH ×3 (05:18→21:31)
--- NOTE | 2018-04-14 06:29 | NEUSURGPN ---
Assessment/Plan: 82y/o female s/p L4-L5 right TLIF and laminectomy; L4-L5 PSF POD1 -PT/OT -Optimize pain management -JPx1 -Post op xrays pending -DVT prophx: TEDs, SCDs, Lovenox POD1 -Please notify NS with any change in neuro/motor exam Subjective: low back pain, tolerable with medications. Denies any new leg pain, numbness or tingling Objective: O: NAD A&Ox3 MAEx4 5/5 and equal in BUE and BLE. Incision c/d/i. TITUS drain serosanguineous Catheter Insertion Date: 04/13/18 - Physician Patient Seen by Dr.: [facility] Neurosurgery Physical Exam - Vitals, I&O, Labs I and O 04/13/18 04/14/18 04/15/18 05:59 05:59 05:59 Intake Total 1896 Output Total 670 Balance 1226 Weight 72.575 kg Intake: Oral (ml) 50 IV Intake (ml) 1750 IV Infused (ml) 96 Ns 1,000 ml @ 75 mls/hr 96 IV CONT ZAC Rx#: [id number] Output: Urine (ml) 450 Catheter 450 Estimated Blood Loss (ml) 150 TITUS Drain Output (ml) 70 Back Francis Reis 70 Vital Signs Temp Pulse Resp BP Pulse Ox 36.7 C 80 18 101/62 96 04/14/18 04:57 04/14/18 04:57 04/14/18 04:57 04/14/18 04:57 04/14/18 04:57 ICD10 Worksheet Patient Problems: Problems Problem Status Onset Rotator cuff rupture, complete Acute
[2018-04-14] MEDS: SENNOSIDES/DOCUSATE SODIUM TAB PO SCH ×2 (08:33→20:53)
[2018-04-14] MEDS: FAMOTIDINE 20 MG TAB PO SCH ×2 (08:36→20:53)
[2018-04-14] MEDS: LISINOPRIL 10 MG TAB PO SCH (08:37)
[2018-04-14] MEDS: oxyCODONE IR 5 MG TAB PO PRN ×3 (08:37→20:53)
[2018-04-14] MEDS: GABAPENTIN 300 MG CAP PO SCH ×3 (08:37→21:31)
[2018-04-14] MEDS ORDERED: amLODIPine BESYLATE 5 MG TAB PO SCH (09:00)
[2018-04-14] MEDS ORDERED: PANTOPRAZOLE SODIUM 40 MG TAB PO PRN (09:00)
[2018-04-14] MEDS: NS 1,000 ML IV SCH (14:01)
--- NOTE | 2018-04-14 14:31 | ASMTCMCOM ---
CM Note CM Note Notes: Pt is s/p L4/5 TLIF, lami. PT/OT have cleared pt for home with her family. Anticipate d/c with no CM needs but will continue to follow for any unanticipated needs. Date Signed: 04/14/2018 02:31 PM Electronically Signed By:LEANDRA Rosales
[2018-04-14] MEDS: ENOXAPARIN 40 MG/0.4 ML SYR SC SCH (15:14)
[2018-04-14] MEDS ORDERED: NS 1,000 ML IV SCH (17:30)
[2018-04-14] MEDS ORDERED: NS 500 ML IV ONE (17:30)
[2018-04-14] MEDS: LATANOPROST 0.005% 2.5 ML OPHT DROPS EACHEYE SCH (20:53)
[2018-04-14] MEDS: METHOCARBAMOL 750 MG TAB PO PRN (20:53)
[2018-04-14] MEDS: PRAVASTATIN SODIUM 40 MG TAB PO SCH (20:53)
[2018-04-15] MEDS: oxyCODONE IR 5 MG TAB PO PRN ×5 (03:48→22:23)
[2018-04-15] MEDS: LEVOTHYROXINE 75 MCG TAB PO SCH (03:49)
[2018-04-15] MEDS: ACETAMINOPHEN 500 MG TAB PO SCH ×3 (05:16→22:23)
[2018-04-15] MEDS: METHOCARBAMOL 750 MG TAB PO PRN ×2 (05:16→22:23)
--- NOTE | 2018-04-15 07:03 | SOAPPROG ---
SOAP Progress Note Assessment/Plan: 82y/o female s/p L4-L5 right TLIF and laminectomy; L4-L5 PSF POD2 -PT/OT -Pain under fairly good control -JPx1 to remove today (50cc output) -Post op xrays show excellent alighment with intact hardware -DVT prophx: TEDs, SCDs, Lovenox -Please notify NS with any change in neuro/motor exam -anticipate d/c home tomorrow when her kids are available 04/15/18 07:02 04/15/18 07:03 04/15/18 07:04 Subjective: pain well controlled, no major complaints Objective: Vital Signs Temp Pulse Resp BP Pulse Ox 36.8 C 81 18 120/71 95 04/15/18 03:52 04/15/18 03:52 04/15/18 03:52 04/15/18 03:52 04/15/18 03:52 04/14/18 04/15/18 04/16/18 05:59 05:59 05:59 Intake Total 2966 1500 Output Total 670 1400 Balance 2296 100 AAOx3, strength full, sensation normal, dressing c/d/i - Pending Discharge Pending Discharge Within 48 Hours: Yes Pending Discharge Date: 04/17/18 Pending Discharge Time: 11:00 ICD10 Worksheet Patient Problems: Problems Problem Status Onset Rotator cuff rupture, complete Acute
[2018-04-15] MEDS: ENOXAPARIN 40 MG/0.4 ML SYR SC SCH (08:07)
[2018-04-15] MEDS: GABAPENTIN 300 MG CAP PO SCH ×3 (08:08→22:23)
[2018-04-15] MEDS: SENNOSIDES/DOCUSATE SODIUM TAB PO SCH ×2 (08:08→20:09)
[2018-04-15] MEDS: FAMOTIDINE 20 MG TAB PO SCH ×2 (08:08→20:09)
[2018-04-15] MEDS: LISINOPRIL 10 MG TAB PO SCH (10:28)
[2018-04-15] MEDS: amLODIPine BESYLATE 5 MG TAB PO SCH (10:28)
[2018-04-15] MEDS: PRAVASTATIN SODIUM 40 MG TAB PO SCH (20:09)
[2018-04-15] MEDS: LATANOPROST 0.005% 2.5 ML OPHT DROPS EACHEYE SCH (20:09)
[2018-04-16] MEDS: LEVOTHYROXINE 75 MCG TAB PO SCH (02:26)
[2018-04-16] MEDS: oxyCODONE IR 5 MG TAB PO PRN ×2 (02:26→06:27)
[2018-04-16] MEDS: ACETAMINOPHEN 500 MG TAB PO SCH ×3 (06:28→22:56)
[2018-04-16] MEDS: METHOCARBAMOL 750 MG TAB PO PRN (06:28)
[2018-04-16] MEDS: GABAPENTIN 300 MG CAP PO SCH ×3 (07:49→21:22)
[2018-04-16] MEDS: ENOXAPARIN 40 MG/0.4 ML SYR SC SCH (07:49)
[2018-04-16] MEDS: FAMOTIDINE 20 MG TAB PO SCH ×2 (07:49→21:21)
[2018-04-16] MEDS: SENNOSIDES/DOCUSATE SODIUM TAB PO SCH ×2 (07:49→21:22)
[2018-04-16] MEDS: amLODIPine BESYLATE 5 MG TAB PO SCH (07:50)
[2018-04-16] MEDS: LISINOPRIL 10 MG TAB PO SCH (07:50)
[2018-04-16] MEDS: ONDANSETRON DISINTEGRATING 4 MG TAB PO PRN ×2 (08:44→10:24)
--- NOTE | 2018-04-16 09:36 | SOAPPROG ---
S[place] Progress Note Assessment/Plan: 82y/o female s/p L4-L5 right TLIF and laminectomy; L4-L5 PSF POD3 -Pain under fairly good control -Post op xrays show excellent alighment with intact hardware -DVT prophx: TEDs, SCDs, Lovenox -brace when out of bed -d/c home today 04/16/18 09:34 Subjective: slight nausea this morning, thinks it is related to pain meds and breakfast Objective: Vital Signs Temp Pulse Resp BP Pulse Ox 37.0 C 90 16 127/75 H 94 04/16/18 07:07 04/16/18 07:07 04/16/18 07:07 04/16/18 07:50 04/16/18 07:07 04/15/18 04/16/18 04/17/18 05:59 05:59 05:59 Intake Total 1500 400 Output Total 1400 320 Balance 100 80 AAOx3, full strength and sensation, no drift, dressings c/d/i - Pending Discharge Pending Discharge Within 24 Hours: Yes Pending Discharge Date: 04/17/18 Pending Discharge Time: 11:00 ICD10 Worksheet Patient Problems: Problems Problem Status Onset Rotator cuff rupture, complete Acute
--- NOTE | 2018-04-16 11:10 | ASMTLACE ---
LACE Length of stay for Answers: 3 days current admission Acuity / Level of Answers: Yes Care: Did the patient have an inpatient admission? Comorbidities - select Answers: Opioid dependence all that apply / Chronic pain Other Notes: HTN # of Emergency department Answers: 1-2 visits in the last 6 months Score: 12 Date Signed: 04/16/2018 11:10 AM Electronically Signed By:LEANDRA Rosales
--- NOTE | 2018-04-16 11:18 | ASDISCHSUM ---
Discharge Information Plan Status:Home with Home Health Medically Cleared to Leave:04/16/2018 Discharge Date:04/17/2018 10:20 AM CM D/C Disposition:Home Health Service [facility] D[facility]C [facility] Projected Discharge Date:04/17/2018 11:00 AM Transportation at D/C:Family Discharge Delay Reason: Follow-Up Date:04/17/2018 11:00 AM Discharge Slot: Final Diagnosis: Placement Information Referral Type:*Home Health Care Services Referral ID:[id number] Provider Name:[facility] [place] Address 1:[address] [place] [address] Address 2: City:[place] Selection Factors: State:[place] Referral Type:Home Infusion Referral ID:[id number] Provider Name: Address 1: Phone Number: Address 2: Fax Number: City: Selection Factors: State: Patient Contact Information Contact Name:LEEANNE Relationship:Son Address: City: Alternate Phone: State/Zip Code: Email: Financial Information Financial Class:Medicare Primary Plan Desc:MEDICARE INPATIENT Primary Plan Number:[id number] Secondary Plan Desc:[employer]/MDR SUPPLEMENT Secondary Plan Number:[id number] Assessment Information LACE LACE Length of stay for Answers: 3 days current admission Acuity / Level of Answers: Yes Care: Did the patient have an inpatient admission? Comorbidities - select Answers: Opioid dependence all that apply / Chronic pain Other Notes: HTN # of Emergency department Answers: 1-2 visits in the last 6 months Score: 12 Date Signed: 04/16/2018 11:10 AM Electronically Signed By:LEANDRA Rosales [facility] Progress Note CM Note CM Note Notes: Pt is s/p L4/5 castro HURTADO. PT/OT have cleared pt for home with her family. Anticipate d/c with no CM needs but will continue to follow for any unanticipated needs. Date Signed: 04/14/2018 02:31 PM Electronically Signed By:LEANDRA Rosales [facility] CM Progress Note CM Note CM Note Notes: Please disregard previous discharge notices. Pt experienced nausea today and d/c was cancelled. Also, she decided she wanted to have home care PT/OT. Referral sent to [facility] her [facility]. PT did not see her today and should see her tomorrow with note sent to [facility]. Anticipate she will d/c tomorrow. Date Signed: 04/16/2018 03:43 PM Electronically Signed By:LEANDRA Rosales [facility] CM Progress Note CM Note CM Note Notes: Pt medically stable for d/c home with [facility] PT/OT. Orders sent in [employer]. Family transport home. Date Signed: 04/17/2018 10:28 AM Electronically Signed By:LEANDRA Jones Intervention Information Intervention Type:*IM-Signed Date of Service:04/17/2018 10:03 AM Patient Type:Inpatient Staff Member:Renita Garcia Hours: Discipline: Severity: Comment:
[2018-04-16] MEDS: ONDANSETRON 4 MG/2 ML VIAL IVP PRN (11:41)
--- NOTE | 2018-04-16 15:44 | ASMTCMCOM ---
CM Note CM Note Notes: Please disregard previous discharge notices. Pt experienced nausea today and d/c was cancelled. Also, she decided she wanted to have home care PT/OT. Referral sent to [facility] her son[facility]. PT did not see her today and should see her tomorrow with note sent to [facility]. Anticipate she will d/c tomorrow. Date Signed: 04/16/2018 03:43 PM Electronically Signed By:LEANDRA Rosales
[2018-04-16] MEDS: LATANOPROST 0.005% 2.5 ML OPHT DROPS EACHEYE SCH (21:21)
[2018-04-16] MEDS: PRAVASTATIN SODIUM 40 MG TAB PO SCH (21:22)
[2018-04-16] MEDS ORDERED: METHOCARBAMOL 500 MG TAB PO PRN (21:30)
[2018-04-17] MEDS: LEVOTHYROXINE 75 MCG TAB PO SCH (02:50)
[2018-04-17] MEDS: ACETAMINOPHEN 500 MG TAB PO SCH (06:35)
[2018-04-17 07:48] VITALS: BP 126/79
[2018-04-17] MEDS: LISINOPRIL 10 MG TAB PO SCH (08:09)
[2018-04-17] MEDS: amLODIPine BESYLATE 5 MG TAB PO SCH (08:09)
[2018-04-17] MEDS: FAMOTIDINE 20 MG TAB PO SCH (08:09)
[2018-04-17] MEDS: GABAPENTIN 300 MG CAP PO SCH (08:09)
[2018-04-17] MEDS: SENNOSIDES/DOCUSATE SODIUM TAB PO SCH (08:09)
[2018-04-17] MEDS: ENOXAPARIN 40 MG/0.4 ML SYR SC SCH (08:13)
--- NOTE | 2018-04-17 09:18 | NEUSURGPN ---
Assessment/Plan: 82y/o female s/p L4-L5 right TLIF and laminectomy; L4-L5 PSF POD4 -PT/OT -Optimize pain management -Post op xrays show intact hardware -DVT prophx: TEDs, SCDs, Lovenox POD1 -Dispo planning, home with home healthcare -Please notify NS with any change in neuro/motor exam Subjective: low back pain, tolerable with medications. Denies any new leg pain, numbness or tingling Objective: NAD A&Ox3 MAEx4 5/5 and equal in BUE and BLE. Incision c/d/i. Catheter Insertion Date: 04/13/18 - Physician Discussed Patient with : Mich Neurosurgery Physical Exam - Vitals, I&O, Labs I and O 04/16/18 04/17/18 04/18/18 05:59 05:59 05:59 Intake Total 400 2275 Output Total 320 Balance 80 2275 Intake: Oral (ml) 400 2275 Output: Urine (ml) 300 Toilet 300 TITUS Drain Output (ml) 20 Back Francis Reis 20 Other: Number of Voids Toilet 1 1 1 Vital Signs Temp Pulse Resp BP Pulse Ox 36.8 C 87 16 126/79 H 95 04/16/18 20:00 04/17/18 07:45 04/17/18 07:45 04/17/18 08:09 04/17/18 07:45 ICD10 Worksheet Patient Problems: Problems Problem Status Onset Rotator cuff rupture, complete Acute
--- NOTE | 2018-04-17 09:20 | PDIAF ---
- Diagnosis Code Status: Full Code - Medication Management Discharge Medications: Medications to Continue on Transfer Levothyroxine [Synthroid 75 mcg (*)] 75 mcg PO DAILY@03 09/07/13 [Last Taken 03/24] C/E/Zn/Cu/OM3/DHA/EPA/LUT/ZEAX [Preservision Areds 2 Softgel] 1 each PO BID #0 11/18/17 [Last Taken 1 Week Ago ~04/06/18] Gabapentin [Neurontin 300 MG (*)] 300 mg PO TID #0 11/18/17 [Last Taken 04/11/18 ] Latanoprost 0.005% [Xalatan 0.005% (*)] 1 drops EACHEYE HS #0 11/18/17 [Last Taken 04/11/18] Pravastatin Sodium 40 mg PO HS #0 11/18/17 [Last Taken 04/11/18] Calcium Carbonate [Oyster Shell Calcium 500 mg (*)] 500 mg PO DAILY #0 01/23/18 [Last Taken 1 Week Ago ~04/06/18] Cholecalciferol Vit D3 [Vitamin D3 (*)] 1,000 units PO DAILY #0 01/23/18 [Last Taken 1 Week Ago ~04/06/18] Lisinopril [Zestril 10 mg (*)] 10 mg PO DAILY 02/20/18 [Last Taken 04/11/18] Aspirin [Aspirin 81mg (*)] 81 mg PO DAILY 03/24/18 [Last Taken 04/11/18] Omeprazole 20 mg PO DAILY PRN 03/30/18 [Last Taken 1 Week Ago ~04/06/18] amLODIPine BESYLATE [Norvasc 5 mg (*)] 2.5 mg PO DAILY 03/30/18 [Last Taken 05/24] Acetamn/Diphenhydramine 500/25 [Tylenol PM (*)] 1 each PO HS 04/14/18 [Last Taken 04/12/18] Acetaminophen [Tylenol ES 500 mg (*)] 1,000 mg PO Q8HRS tab 04/16/18 [Last Taken Unknown] Methocarbamol [Robaxin 750 mg (*)] 750 mg PO QID PRN #60 tab 04/16/18 [Last Taken Unknown] oxyCODONE IR [Oxycodone Ir (*)] 5 - 10 mg PO Q4HRS PRN #90 tab 04/16/18 [Last Taken Unknown] Methocarbamol [Robaxin 500 mg (*)] 750 mg PO QID PRN #60 tab 04/17/18 [Last Taken Unknown] Discharge Medications: Refer to the Discharge Home Medication list for PRN reason. - Orders Services needed: Home Care, Physical Therapy, Occupational Therapy Home Care Face to Face: I certify that this patient was under my care and that I had the required mrit-ly-anex encounter meeting the encounter requirements on the discharge day. My findings support the fact that the patient is homebound as defined in Home Care Face to Face Continued: CMS Chapter 7 Medicare Benefits Manual 30.1.1 , The condition of the patient is such that there exists a normal inability to leave home and consequently, leaving home would require a considerable and taxing effort. Diet Recommendation: no restrictions on diet Diet Texture: Regular Texture Diet - Follow Up Care Current Providers and Referrals: Itzel Cruz MD [Primary Care Provider] -
--- NOTE | 2018-04-17 10:29 | ASMTCMCOM ---
CM Note CM Note Notes: Pt medically stable for d/c home with [facility] PT/OT. Orders sent in Allscripts. Family transport home. Date Signed: 04/17/2018 10:28 AM Electronically Signed By:LEANDRA Jones
== END 2018-04-17 10:20 | disposition home health service (06) | DRG 455 ==
LOC: F3N 10:32
PROVIDERS: ADMIT Neurological Surgery; ATTEND Neurological Surgery
PROC: 0SG0071 Fusion of Lumbar Vertebral Joint with Autologous Tissue Substitute, Posterior Approach, Posterior Column, Open Approach (ICD-10-PCS; principal; 2018-04-13 12:15)
PROC: 0SG00AJ Fusion of Lumbar Vertebral Joint with Interbody Fusion Device, Posterior Approach, Anterior Column, Open Approach (ICD-10-PCS; principal; 2018-04-13 12:15)
PROC: 4A1004G Monitoring of Central Nervous Electrical Activity, Intraoperative, Open Approach (ICD-10-PCS; principal; 2018-04-13 12:15)
PROC: 00NY0ZZ Release Lumbar Spinal Cord, Open Approach (ICD-10-PCS; principal; 2018-04-13 12:15)
PROC: 8E0WXBZ Computer Assisted Procedure of Trunk Region (ICD-10-PCS; principal; 2018-04-13 12:15)
DX: M43.16 Spondylolisthesis, lumbar region (principal); M48.061 Spinal stenosis, lumbar region without neurogenic claudication; M54.16 Radiculopathy, lumbar region; I10 Essential (primary) hypertension; E03.9 Hypothyroidism, unspecified; K21.9 Gastro-esophageal reflux disease without esophagitis; E78.5 Hyperlipidemia, unspecified; N28.9 Disorder of kidney and ureter, unspecified
CPT/HCPCS: 97116-GP; 97161-GP; 97165-GO; 97535-GO; C1713; G8978-GP-CJ; G8979-GP-CI; G8987-GO-CJ; G8988-GO-CI; J0171; J0690; J1100; J1650; J2274; J2370; J2405; J2704; J3010

== ENCOUNTER → 2018-07-11 | Outpatient (CLI) | payer OTHER, MEDICARE | LOC: FIMAGING 12:49 | PROVIDERS: ATTEND Physician Assistant | DX: Z09 Encounter for follow-up examination after completed treatment for conditions other than malignant neoplasm (principal); Z98.1 Arthrodesis status ==

== ENCOUNTER 2018-07-15 10:30 | Emergency (ER) | payer OTHER, MEDICARE ==
--- NOTE | 2018-07-15 11:40 | EDPHY ---
H & P Stated Complaint: HTN, sent from Dr Kemp Time Seen by Provider: 07/15/18 10:57 HPI/ROS: Chief Complaint: Hypertension HPI: 82-year-old woman with a history of hypertension is presenting after being sent in from her primary care physician's office for hypertension. Patient has also been having general malaise, flushing. Is noted that she had a heart rate of 120. She did have some recent travel to [place] with some immobility. No chest pain or shortness of breath. No cough. No fevers or chills. No nausea or vomiting. Is feeling flushed and just general malaise. No leg pain or swelling. Patient doubled her dose of amlodipine last night her blood pressure remained high. In the office her blood pressure was 150/98. ROS: 10 systems were reviewed and were negative except those elements noted in the HPI. PMH: Hypertension Social History: No smoking, no alcohol, no recreational drug use Family History: non-contributory Physical Exam: Gen: Awake, Alert, No Distress HEENT: Nose: no rhinorrhea Eyes: PERRLA, EOMI Mouth: Moist mucosa Neck: Supple, no JVD Chest: nontender, lungs clear to auscultation Heart: S1, S2 normal, no murmur Abd: Soft, non-tender, no guarding Back: no CVA tenderness, no midline tenderness Ext: no edema, non-tender Skin: no rash Neuro: CN II-XII intact, Sensation grossly intact, Strength 5/5 in bilateral upper and lower extremities - Medical/Surgical History Hx Asthma: No Hx Chronic Respiratory Disease: No Hx Diabetes: No Hx Cardiac Disease: Yes Hx Renal Disease: No Hx Cirrhosis: No Hx Alcoholism: No Hx HIV/AIDS: No Hx Splenectomy or Spleen Trauma: No Other PMH: gerd, rt ovary removed appendix removed, orhto knee DIANA, DIANA shoulder surgery, htn, hypothyroid - Social History Smoking Status: Former smoker Constitutional: Initial Vital Signs Temperature (C) 36.7 C 07/15/18 10:33 Heart Rate 127 H 07/15/18 10:33 Respiratory Rate 18 07/15/18 10:33 Blood Pressure 170/121 H 07/15/18 10:33 O2 Sat (%) 96 07/15/18 10:33 O2 Delivery Mode Room Air Allergies/Adverse Reactions: codeine [Codeine] Allergy (Verified 07/15/18 10:32) nausea- needs antiemetic hydrocodone [Hydrocodone] Allergy (Verified 07/15/18 10:32) nausea- needs antiemetic lactose Allergy (Verified 07/15/18 10:32) Vomiting Home Medications: Medication Instructions Recorded Levothyroxine [Synthroid 75 mcg 75 mcg PO DAILY@03 09/07/13 (*)] C/E/Zn/Cu/OM3/DHA/EPA/LUT/ZEAX 1 each PO BID #0 11/18/17 [Preservision Areds 2 Softgel] Gabapentin [Neurontin 300 MG (*)] 300 mg PO TID #0 11/18/17 Latanoprost 0.005% [Xalatan 0.005% 1 drops EACHEYE HS #0 11/18/17 (*)] Pravastatin Sodium 40 mg PO HS #0 11/18/17 Calcium Carbonate [Oyster Shell 500 mg PO DAILY #0 01/23/18 Calcium 500 mg (*)] Cholecalciferol Vit D3 [Vitamin D3 1,000 units PO DAILY #0 01/23/18 (*)] Lisinopril [Zestril 10 mg (*)] 10 mg PO DAILY 02/20/18 Aspirin [Aspirin 81mg (*)] 81 mg PO DAILY 03/24/18 Omeprazole 20 mg PO DAILY PRN 03/30/18 amLODIPine BESYLATE [Norvasc 5 mg 2.5 mg PO DAILY 03/30/18 (*)] Acetamn/Diphenhydramine 500/25 1 each PO HS 04/14/18 [Tylenol PM (*)] Acetaminophen [Tylenol ES 500 mg 1,000 mg PO Q8HRS tab 04/16/18 (*)] Methocarbamol [Robaxin 750 mg (*)] 750 mg PO QID PRN #60 tab 04/16/18 oxyCODONE IR [Oxycodone Ir (*)] 5 - 10 mg PO Q4HRS PRN #90 tab 04/16/18 Methocarbamol [Robaxin 500 mg (*)] 750 mg PO QID PRN #60 tab 04/17/18 Medical Decision Making - Diagnostics EKG Interpretation: ECG time 10:58 a.m., sinus tachycardia with a weight of 108, Q-waves in leads 3 and AVF consistent with an old infarct. No acute ST or T-wave changes. Imaging Results: Imaging Impressions Chest X-Ray 07/15/18 11:41 Impression: Clear lungs. No pneumonia or acute process. ED Course/Re-evaluation: ECG is unremarkable. Patient is tachycardic. Patient's D-dimer is elevated. Will obtain CT scan of the chest to rule out PE. Patient's blood pressure is 162/96. Heart rate has improved to 94. CT scan of the chest is negative. Troponin is negative. Remainder laboratory evaluations are unremarkable. Will discharge with follow-up with Dr. Rivera for further evaluation. Return for any concerns. No evidence of acute cardiac or respiratory process. No infiltrate. She is afebrile and there is no source of infection. - Data Points Laboratory Results: Laboratory Results 07/15/18 11:05 07/15/18 11:05 07/15/18 07/15/18 07/15/18 11:10 11:05 11:05 WBC RBC Hgb Hct MCV MCH MCHC RDW Plt Count MPV Neut % (Auto) Lymph % (Auto) Kane % (Auto) Eos % (Auto) Baso % (Auto) Nucleat RBC Rel Count Absolute Neuts (auto) Absolute Lymphs (auto) Absolute Monos (auto) Absolute Eos (auto) Absolute Basos (auto) Absolute Nucleated RBC Immature Gran % Immature Gran # D-Dimer 0.92 ug/mLFEU H ug/mLFEU (0.00-0.50) Sodium Potassium Chloride Carbon Dioxide Anion Gap BUN Creatinine Estimated GFR Glucose Calcium POC Troponin I 0.00 ng/mL ng/mL (0.00-0.08) Urine Color YELLOW Urine Appearance CLEAR Urine pH 7.0 (5.0-7.5) Ur Specific [place] 1.011 (1.002-1.030) Urine Protein NEGATIVE (NEGATIVE) Urine Ketones NEGATIVE (NEGATIVE) Urine Blood NEGATIVE (NEGATIVE) Urine Nitrate NEGATIVE (NEGATIVE) Urine Bilirubin NEGATIVE (NEGATIVE) Urine Urobilinogen NEGATIVE EU EU (0.2-1.0) Ur Leukocyte Esterase NEGATIVE (NEGATIVE) Urine Glucose NEGATIVE (NEGATIVE) 07/15/18 07/15/18 11:05 11:05 WBC 8.00 10^3/uL 10^3/uL (3.80-9.50) RBC 4.96 10^6/uL 10^6/uL (4.18-5.33) Hgb 14.6 g/dL g/dL (12.6-16.3) Hct 43.4 % % (38.0-47.0) MCV 87.5 fL fL (81.5-99.8) MCH 29.4 pg pg (27.9-34.1) MCHC 33.6 g/dL g/dL (32.4-36.7) RDW 11.9 % % (11.5-15.2) Plt Count 269 10^3/uL 10^3/uL (150-400) MPV 9.1 fL fL (8.7-11.7) Neut % (Auto) 81.0 % H % (39.3-74.2) Lymph % (Auto) 12.9 % L % (15.0-45.0) Kane % (Auto) 5.1 % % (4.5-13.0) Eos % (Auto) 0.0 % L % (0.6-7.6) Baso % (Auto) 0.5 % % (0.3-1.7) Nucleat RBC Rel Count 0.0 % % (0.0-0.2) Absolute Neuts (auto) 6.48 10^3/uL 10^3/uL (1.70-6.50) Absolute Lymphs (auto) 1.03 10^3/uL 10^3/uL (1.00-3.00) Absolute Monos (auto) 0.41 10^3/uL 10^3/uL (0.30-0.80) Absolute Eos (auto) 0.00 10^3/uL L 10^3/uL (0.03-0.40) Absolute Basos (auto) 0.04 10^3/uL 10^3/uL (0.02-0.10) Absolute Nucleated RBC 0.00 10^3/uL 10^3/uL (0-0.01) Immature Gran % 0.5 % % (0.0-1.1) Immature Gran # 0.04 10^3/uL 10^3/uL (0.00-0.10) D-Dimer Sodium 140 mEq/L mEq/L (135-145) Potassium 3.7 mEq/L mEq/L (3.3-5.0) Chloride 103 mEq/L mEq/L (97-110) Carbon Dioxide 25 mEq/l mEq/l (22-31) Anion Gap 12 mEq/L mEq/L (8-16) BUN 10 mg/dL mg/dL (7-23) Creatinine 0.9 mg/dL mg/dL (0.6-1.0) Estimated GFR 60 Glucose 114 mg/dL H mg/dL (70-100) Calcium 10.0 mg/dL mg/dL (8.5-10.4) POC Troponin I Urine Color Urine Appearance Urine pH Ur Specific [place] Urine Protein Urine Ketones Urine Blood Urine Nitrate Urine Bilirubin Urine Urobilinogen Ur Leukocyte Esterase Urine Glucose Point of Care Test Results: Chemistry 07/15/18 11:10 POC Troponin I 0.00 ng/mL ng/mL (0.00-0.08) Departure - Departure Disposition: Home, Routine, Self-Care Clinical Impression: Hypertension Condition: Good Instructions: Hypertension (ED) Additional Instructions: Follow up with primary care physician in 3-4 days for blood pressure recheck. Return to the emergency department for increasing chest pain, shortness of breath, palpitations, fevers, chills, or any other concerns. Referrals: Itzel Cruz MD [Primary Care Provider] - As per Instructions
[2018-07-15 11:49] LABS: PLATELET COUNT 269 10^3/uL (150-400)
[2018-07-15] MEDS ORDERED: IOPAMIDOL (ISOVUE 370) 100 ML BTL IV ONE (12:39)
[2018-07-15 13:51] VITALS: BP 155/112
--- NOTE | 2018-07-15 21:20 | CPEKG ---
Test Reason : OPEN Blood Pressure : / mmHG Vent. Rate : 108 BPM Atrial Rate : 109 BPM P-R Int : 153 ms QRS Dur : 077 ms QT Int : 338 ms P-R-T Axes : 071 -33 054 degrees QTc Int : 453 ms Sinus tachycardia Inferior infarct, old Confirmed by Preeti Ibarra ([id number]) on 07/15/2018 9:19:30 PM Referred By: Confirmed By:Preeti Ibarra
== END 2018-07-15 13:50 | disposition home or self-care (01) ==
DX: R00.0 Tachycardia, unspecified (principal); I10 Essential (primary) hypertension; Z87.891 Personal history of nicotine dependence
CPT/HCPCS: 71046; 71275; 93005; 99285; Q9967; 84484-PO

== ENCOUNTER 2018-07-29 14:35 | Emergency (ER) | payer OTHER, MEDICARE ==
--- NOTE | 2018-07-29 14:51 | EDPHY ---
H & P Stated Complaint: HTN Time Seen by Provider: 07/29/18 14:44 HPI/ROS: CHIEF COMPLAINT: Worried about blood pressure HISTORY OF PRESENT ILLNESS: This is an 82-year-old female with a history of hypertension and glaucoma who comes to the emergency room concerned about her blood pressure. She takes amlodipine and lisinopril for hypertension. 3 days ago she discovered that she has been taking a double dose of lisinopril for about a month. She is prescribed 10 mg daily but has been taking 20 mg daily inadvertently. After discovering that she cut back to 10 mg daily. She has continued her amlodipine 5 mg daily. She brings her home blood pressure readings to the emergency department: July 18 154/92 July 22 144/96 July 24 133/78 July 29 (today) 180/108 She is concerned about the high reading that she obtained today. She denies headache, confusion, visual changes, chest pain, shortness of breath, hematuria. She took 20 mg of propranolol today because she felt anxious. Initial blood pressure reading in the emergency department was 184/113. She was seen in the emergency department on July 15, concerned about hypertension. During that visit she had a thorough evaluation for end organ damage. REVIEW OF SYSTEMS: A ten system review of systems was performed and is negative with the exception of the items mentioned in the HPI. Past medical history: 1. Hypertension 2. Glaucoma 3. GERD 4. Hypothyroidism Past surgical history: 1. Right oophorectomy 2. Appendectomy 3. Bilateral knee replacements 4. Bilateral shoulder surgeries Social history: She lives independently and leads an active lifestyle. No tobacco use. General Appearance: Alert. Vital signs reviewed. 184/113 at triage. Eyes: Pupils equal and round, no conjunctival injection, no discharge. Anicteric. ENT, Mouth: Mucous membranes are moist, no oropharyngeal erythema or edema. Neck: No lymphadenopathy, supple. No JVD. Respiratory: Lungs are clear to auscultation; no wheezes, rales, or rhonchi. Cardiovascular: Regular rate and rhythm; no murmur, rub, or gallop. Gastrointestinal: Abdomen is soft and nontender, no masses or organomegaly, bowel sounds normal. Skin: Warm and dry, no rashes on exposed skin, normal color. Back: Nontender to palpation over the thoracolumbar spine. No CVAT. Extremities: No lower extremity edema, no calf tenderness or swelling. Neurological: Alert and oriented. Moving all four extremities easily and equally. Cranial nerves II through XII are examined and are intact (visual acuity not tested). Strength is 5 over 5 bilaterally with testing of all major motor groups. Sensation is intact to light touch over all 4 extremities. Gait is normal. Psychiatric: Normal affect. - Personal History Current Tetanus Diphtheria and Acellular Pertussis (TDAP): Yes - Medical/Surgical History Hx Asthma: No Hx Chronic Respiratory Disease: No Hx Diabetes: No Hx Cardiac Disease: Yes Hx Renal Disease: No Hx Cirrhosis: No Hx Alcoholism: No Hx HIV/AIDS: No Hx Splenectomy or Spleen Trauma: No Other PMH: gerd, rt ovary removed appendix removed, orhto knee DIANA, DIANA shoulder surgery, htn, hypothyroid - Social History Smoking Status: Former smoker Constitutional: Initial Vital Signs Temperature (C) 36.6 C 07/29/18 14:43 Heart Rate 94 07/29/18 14:43 Respiratory Rate 18 07/29/18 14:43 Blood Pressure 184/113 H 07/29/18 14:43 O2 Sat (%) 96 07/29/18 14:43 O2 Delivery Mode Room Air Allergies/Adverse Reactions: codeine [Codeine] Allergy (Verified 07/29/18 14:47) nausea- needs antiemetic hydrocodone [Hydrocodone] Allergy (Verified 07/15/18 10:32) nausea- needs antiemetic lactose Allergy (Verified 07/29/18 14:47) Vomiting Home Medications: Medication Instructions Recorded Levothyroxine [Synthroid 75 mcg 75 mcg PO DAILY@03 09/07/13 (*)] C/E/Zn/Cu/OM3/DHA/EPA/LUT/ZEAX 1 each PO BID #0 11/18/17 [Preservision Areds 2 Softgel] Gabapentin [Neurontin 300 MG (*)] 300 mg PO TID #0 11/18/17 Latanoprost 0.005% [Xalatan 0.005% 1 drops EACHEYE HS #0 11/18/17 (*)] Pravastatin Sodium 40 mg PO HS #0 11/18/17 Calcium Carbonate [Oyster Shell 500 mg PO DAILY #0 01/23/18 Calcium 500 mg (*)] Cholecalciferol Vit D3 [Vitamin D3 1,000 units PO DAILY #0 01/23/18 (*)] Lisinopril [Zestril 10 mg (*)] 10 mg PO DAILY 02/20/18 Aspirin [Aspirin 81mg (*)] 81 mg PO DAILY 03/24/18 Omeprazole 20 mg PO DAILY PRN 03/30/18 amLODIPine BESYLATE [Norvasc 5 mg 2.5 mg PO DAILY 03/30/18 (*)] Acetamn/Diphenhydramine 500/25 1 each PO HS 04/14/18 [Tylenol PM (*)] Acetaminophen [Tylenol ES 500 mg 1,000 mg PO Q8HRS tab 04/16/18 (*)] Methocarbamol [Robaxin 750 mg (*)] 750 mg PO QID PRN #60 tab 04/16/18 oxyCODONE IR [Oxycodone Ir (*)] 5 - 10 mg PO Q4HRS PRN #90 tab 04/16/18 Methocarbamol [Robaxin 500 mg (*)] 750 mg PO QID PRN #60 tab 04/17/18 Medical Decision Making ED Course/Re-evaluation: Worried about HTN after changing dose of lisinopril. Hypertensive on arrival. BP after resting in ED was 147/93. She understands that this is not a normal BP , but it is much improved compared to earlier. She had been taking 20 mg of lisinopril, discovered that her RX was for 10 mg and dropped to 10 mg. It seems that, regardless of the dose she has been taking, her BP has been trending high. She was evaluated on 06/15/18 for HTN. No signs or symptoms of end organ damage. She does not desire another ED work-up and I agree that it is not necessary. She is going to go back to 20 mg of lisinopril and FU with her PCP. Differential Diagnosis: DDX includes but is not limited to medication noncompliance, dietary misadventure, hypertensive emergency, hypertensive urgency, stroke, ACS, kidney damage. Departure - Departure Disposition: Home, Routine, Self-Care Clinical Impression: Hypertension Condition: Good Instructions: Hypertension (ED) Additional Instructions: As we discussed, continue with lisinopril 20 mg daily. Continue your amlodipine also. Discussed this with Dr. Cruz on Tuesday morning. You can take an additional 10 mg of lisinopril today when you return home. Check your blood pressure tomorrow around noon, just to see how it is running. Write down the value, as you have been. If you develop headache, new numbness or weakness , visual changes, or chest pain you should return to the emergency department immediately. Referrals: Itzel Cruz MD [Primary Care Provider] - As per Instructions
[2018-07-29 15:55] VITALS: BP 147/93
== END 2018-07-29 15:55 | disposition home or self-care (01) ==
DX: I10 Essential (primary) hypertension (principal)

== ENCOUNTER → 2018-11-14 | Outpatient (CLI) | payer OTHER, MEDICARE | LOC: FIMAGING 09:58 | PROVIDERS: ATTEND Physician Assistant Surgical | DX: Z98.1 Arthrodesis status (principal) ==

== ENCOUNTER → 2019-03-08 | Outpatient (CLI) | payer OTHER, MEDICARE | LOC: FIMAGING 09:07 | PROVIDERS: ATTEND Family Medicine | DX: Z13.820 Encounter for screening for osteoporosis (principal); M85.89 Other specified disorders of bone density and structure, multiple sites; E03.9 Hypothyroidism, unspecified; E78.5 Hyperlipidemia, unspecified; I10 Essential (primary) hypertension; N18.3 Chronic kidney disease, stage 3 (moderate); Z78.0 Asymptomatic menopausal state ==